=== PATIENT | male | born 1960 | race Hispanic/Latino ===

== ENCOUNTER 2025-08-01 15:23 | Emergency (ER) | payer MEDICARE ==
[~2025-08-01] VITALS: Ht 167.6 cm; Wt 84.8 kg
[2025-08-01] MEDS ORDERED: DOXYCYCLINE HY100 MG PO (16:17)
[2025-08-01 16:33] VITALS: PULSE 108; RESP 16; TEMP 98.6; O2SAT 100
== END 2025-08-01 16:30 | disposition home or self-care (01) ==
LOC: ER 15:33
DX: S61.217A Laceration without foreign body of left little finger without damage to nail, initial encounter (principal); S61.215A Laceration without foreign body of left ring finger without damage to nail, initial encounter; W26.8XXA Contact with other sharp object(s), not elsewhere classified, initial encounter; Y92.89 Other specified places as the place of occurrence of the external cause; I10 Essential (primary) hypertension; E11.9 Type 2 diabetes mellitus without complications; E78.5 Hyperlipidemia, unspecified; I48.91 Unspecified atrial fibrillation
CPT/HCPCS: 99283